=== PATIENT | female | born 1995 | race Caucasian/White ===

== ENCOUNTER 2019-05-07 20:21 | Inpatient (IN) ==
[2019-05-07] MEDS ORDERED: PENICILLIN G POTASSIUM 6 MU in DEXTROSE 5% 250 ML IV STA (21:01)
[2019-05-07] MEDS ORDERED: OXYTOCIN 30 UNITS/500 ML BAG IV PRN (21:01)
[2019-05-07] MEDS ORDERED: PENICILLIN G POTASSIUM 3 MU in DEXTROSE 5% 100 ML IV PRN (21:15)
[2019-05-07 21:43] LABS: Hematocrit (blood only) 40.1 % (37-47); Hemoglobin 13.9 g/dL (12.0-16.0); Mean Corpuscular Volume 91.3 fL (80-100); Mean Platelet Volume 10.8 fL (7.4-10.4); Platelet Count 262 K/uL (130-400); RDW Coefficient of Variation 13.3 % (11.5-14.5); RDW Standard Deviation 43.5 fL (36.4-46.3); Red Blood Count 4.39 M/uL (4.2-5.4); White Blood Count 15.72 K/uL (4.8-10.8)
[2019-05-07] MEDS: LACTATED RINGER'S 1,000 ML IV PRN (21:44)
[2019-05-07 21:52] LABS: Mean Corpuscular Hgb Conc 34.7 g/dL (32-36)
[2019-05-07] MEDS ORDERED: BUPIVACAINE 0.25% 30 ML VIAL ONE (21:53)
[2019-05-07] MEDS ORDERED: ePHEDrine sulfate 50 MG/ML AMP ONE (21:53)
[2019-05-07] MEDS ORDERED: fentaNYL citrate 100 MCG/2 ML VIAL ONE (21:53)
[2019-05-07] MEDS ORDERED: fentaNYL 2MCG/ML ROPIV 1.25MG/ML 100 ML BAG EPI ONE (21:53)
--- NOTE | 2019-05-07 22:03 | Obstetrical Progress Note ---
Date of Service May 07, 2019 Subjective Admit Note 23 F P0000 at 38.2 weeks admitted in active labor. Cervix 3/80/0/vertex/intact. GBS positive. FHT Cat 1. Patient requesting epidural. Will admit and start antibiotics for GBS prophylaxis. Results & Data Vital Signs (Past 12 Hours) Vital Signs Temp Pulse Resp BP 05/07/19 21:11 36.5 C 05/07/19 20:33 80 22 143/75 H 05/07/19 20:31 80 143/75 H
[2019-05-07] MEDS ORDERED: NALOXONE HCL 1 MG in SODIUM CHLORIDE 0.9% 1000ML 1,000 ML IV PRN (22:47)
[2019-05-07] MEDS ORDERED: ePHEDrine sulfate 50 MG/ML AMP IV PRN (22:47)
[2019-05-07] MEDS ORDERED: NALBUPHINE HCL INJ 10 MG/ML AMP IV PRN (22:47)
[2019-05-07] MEDS ORDERED: ONDANSETRON INJ 2 MG/ML 2 ML VIAL IV PRN (22:47)
[2019-05-07] MEDS ORDERED: DiphenhydrAMINE HCL 50 MG/ML VIAL IV PRN (22:47)
[2019-05-07] MEDS ORDERED: NALOXONE HCL 0.4 MG/1 ML VIAL/CARP IV PRN (22:47)
[2019-05-07] MEDS ORDERED: fentaNYL 2MCG/ML ROPIV 1.25MG/ML 100 ML BAG EPI PRN (22:47)
--- NOTE | 2019-05-07 22:51 | Anesthesiology Consultation ---
Date of Service May 07, 2019 Assessment & Plan Chart Review Chart Review: Patient NOT seen in Pre Admission Testing and Acceptable Risk for Labor Epidural Consults Requested none ASA ASA2 Proposed Anesthesia Anesthesia Type: Labor Epidural and CSE Risk / Benefits Reviewed With: PT / POA / Parent / Guardian, Accepts Plan and Informed Consent Obtained History Height/Weight Height: 5 ft 3 in Weight: 170 kg Allergies Allergy/AdvReac Type Severity Reaction Status Date / Time acetaminophen Allergy Unknown THROAT Verified 04/02/15 23:43 ITCHY, GETS THE JITTERS Medications Home Medications Medication Instructions Recorded Confirmed Last Taken levothyroxine 50 mcg PO DAILY 05/07/19 05/07/19 05/06/19 07:30 vit-iron fum-folic ac 1 tab PO DAILY 05/07/19 05/07/19 05/06/19 08:00 [ Vitamin] Active Medications Generic Name Dose Route Start Last Admin Trade Name Freq PRN Reason Stop Dose Admin Lactated Ringer's 1,000 mls @ 125 mls/hr 05/07/19 21:01 05/07/19 21:44 Lr IV 05/09/19 21:00 999 mls/hr .Q8H PRN Administration L&D Protocol Protocol NPO Date Last Intake of Fluids: 05/07/19 Time Last Intake of Fluids: 20:00 Date Last Intake of Solids: 05/07/19 Time Last Intake of Solids: 20:00 Past Medical History Medical History Hair disorder Hypothyroidism (acquired) Rhinitis, nonallergic Vertigo Exercise / Class Metabolic Activity II 4-5 Yardwork/Stairs/Walk up hill Past Surgical History Surgical History History of arthroscopy of left knee History of dental surgery Past Anesthesia History No Hx of Anesthesia Complications and No Family Hx of Anesthesia Complications History of PONV No Hx of PONV Social History Smoking Status: Never smoker Hx Alcohol Use: No Hx Substance Use: No substance use type: does not use Review of Systems no chest pain or sob Physical Exam Vital Signs Last Vital Signs Temp 36.5 C 05/07/19 21:11 Pulse 98 H 05/07/19 22:45 Resp 22 05/07/19 20:33 BP 143/75 H 05/07/19 20:33 Pulse Ox 99 05/07/19 22:45 ENMT Mouth: no TMJ abnormality Thyromental Distance: > or= 3.5 Finger Breadths Mallampati Class: II Neck normal visual inspection Respiratory normal respiratory effort Auscultation: lungs clear to auscultation bilaterally Cardiovascular Rate/Rhythm: regular rate and regular rhythm Musculoskeletal Spine: normal cervical ROM Neurologic moves all extremities Psychiatric Orientation: alert and oriented x 3 Testing Laboratory Results 05/07/19 21:34
[2019-05-08] MEDS: LACTATED RINGER'S 1,000 ML IV PRN (01:53)
[2019-05-08] MEDS ORDERED: OXYTOCIN 30 UNITS/500 ML BAG IV PRN (04:27)
[2019-05-08] MEDS ORDERED: ACETAMINOPHEN 325 MG TAB PO PRN (04:27)
[2019-05-08] MEDS ORDERED: MEASLES, MUMPS & RUBELLA VIRUS VIAL SQ ONE (04:27)
[2019-05-08] MEDS ORDERED: HYDROCORTISONE ACETATE 25 MG SUPP PR PRN (04:27)
[2019-05-08] MEDS ORDERED: DIPHTHERIA/TETANUS/PERTUSSIS 0.5 ML SYR/VIAL IM ONE (04:27)
[2019-05-08] MEDS ORDERED: BISACODYL 10 MG SUPP PR PRN (04:27)
[2019-05-08] MEDS ORDERED: BENZOCAINE 20% AER SPR 82.5 GM CAN EXT PRN (04:27)
[2019-05-08] MEDS ORDERED: SUPERCREAM 0.870% 15 GM JAR EXT PRN (04:27)
[2019-05-08] MEDS ORDERED: LACTATED RINGER'S 1,000 ML IV SCH (04:30)
--- NOTE | 2019-05-08 04:34 | Delivery Summary ---
Vaginal Delivery Summary Date of Service May 08, 2019 Vaginal Delivery Summary Delivery Note live female TONIA over intact perineum with delayed cord clamping. Apgars 7/9 weight pending. Cord blood obtained followed by spontaneous delivery of intact placenta. No tears. EBL 250 ml. Final sponge and instrument count are correct. Mom and baby stable.
[2019-05-08] MEDS: LEVOTHYROXINE SODIUM 50 MCG TABLET PO SCH (06:38)
[2019-05-08] MEDS ORDERED: NON-FORMULARY MEDICATION (Prenatal Vit-Iron Fum-Folic Ac [Prenatal Vitamin] 1 TAB) PO SCH (09:00)
[2019-05-08] MEDS: FERROUS SULFATE 325 MG TAB PO SCH (09:48)
[2019-05-08] MEDS: PRENATAL VITAMIN 1 TAB PO SCH (09:48)
[2019-05-08] MEDS: DOCUSATE SODIUM 100 MG CAP PO SCH ×2 (09:48→20:46)
[2019-05-08] MEDS: IBUPROFEN 600 MG TAB PO PRN ×3 (09:55→20:46)
--- NOTE | 2019-05-08 13:10 | Anesthesia Procedure Note ---
Date of Service May 08, 2019 Anesthesia Post Epidural Note Vital Signs Vital Signs: Temp Pulse Resp BP Pulse Ox 36.7 C 74 20 121/76 98 05/08/19 08:25 05/08/19 08:25 05/08/19 08:25 05/08/19 08:25 05/08/19 08:25 Notes Mental Status: alert / awake / arousable and participated in evaluation Nausea / Vomiting: adequately controlled Pain: adequately controlled Airway Patency, RR, SpO2: stable & adequate BP & HR: stable & adequate Hydration State: stable & adequate Neuraxial Anesthesia: was administered and sensory block is resolving Anesthetic Complications: no major complications apparent Epidural: Removed without complications and With tip intact
[2019-05-09] MEDS: LEVOTHYROXINE SODIUM 50 MCG TABLET PO SCH (06:16)
[2019-05-09 06:48] LABS: Hematocrit (blood only) 32.6 % (37-47); Hemoglobin 10.5 g/dL (12.0-16.0); Mean Corpuscular Hgb Conc 32.2 g/dL (32-36); Mean Corpuscular Volume 94.2 fL (80-100); Mean Platelet Volume 10.6 fL (7.4-10.4); Platelet Count 200 K/uL (130-400); RDW Coefficient of Variation 13.7 % (11.5-14.5); RDW Standard Deviation 46.6 fL (36.4-46.3); Red Blood Count 3.46 M/uL (4.2-5.4); White Blood Count 13.16 K/uL (4.8-10.8)
[2019-05-09] MEDS: PRENATAL VITAMIN 1 TAB PO SCH (09:15)
[2019-05-09] MEDS: DOCUSATE SODIUM 100 MG CAP PO SCH (09:15)
[2019-05-09] MEDS: IBUPROFEN 600 MG TAB PO PRN ×2 (09:15→15:12)
[2019-05-09] MEDS: FERROUS SULFATE 325 MG TAB PO SCH (09:15)
--- NOTE | 2019-05-09 12:12 | Obstetrical Progress Note ---
Date of Service May 09, 2019 Assessment & Plan (1) normal course: PPD #1 pt doing well anticipate disch tomorrow Results & Data Vital Signs (Past 12 Hours) Vital Signs Temp Pulse Pulse Resp BP Pulse Ox 05/09/19 07:30 36.5 C 72 20 102/60 99 05/09/19 03:25 36.6 C 58 L 16 106/61 05/09/19 00:17 36.6 C 55 L 18 122/67
[2019-05-09] MEDS ORDERED: BISACODYL 5 MG TABEC PO SCH (20:00)
== END 2019-05-09 20:10 | disposition home or self-care (01) | DRG 807 ==
LOC: 4S1 20:21 → OPB 20:21 → 4S1 21:02 → 4S2 05-08 07:03